=== PATIENT | female | born 1985 | race Caucasian/White ===

== ENCOUNTER 2018-06-10 07:52 | Day surgery (SDC) | payer OTHER ==
[~2018-06-10] VITALS: Ht 165.1 cm; Wt 64.0 kg
[2018-06-10] VITALS (14 sets, daily range): BP systolic 102–128; BP diastolic 58–74; PULSE 65–92; RESP 12–24; Ht 165.1 cm; Wt 64.0 kg
[~2018-06-10 07:52] MED LIST: CEFAZOLIN 2 GM/50 ML (PMX) 50 ML IVPB ONE; DESFLURANE 15 MIN ONE; SOD CHLORIDE 0.9% 1,000 ML IV SCH
[2018-06-10] MEDS ORDERED: LEVO1TAB6 PO (09:22)
[2018-06-10] MEDS ORDERED: SERT25TA PO (09:24)
[2018-06-10] MEDS ORDERED: CYCL1DRO BOTH EYES (09:24)
[2018-06-10] MEDS ORDERED: CEFAZOLIN 1 GM INJ ONE (09:33)
[2018-06-10] MEDS ORDERED: GLYCOPYRROLATE 0.4 MG INJ ONE (09:33)
[2018-06-10] MEDS ORDERED: NEOSTIGMINE 3 MG/3 ML SYRINGE ONE (09:33)
[2018-06-10] MEDS ORDERED: ROCURONIUM 50 MG INJ ONE (09:33)
[2018-06-10] MEDS ORDERED: PROPOFOL 20 ML ONE (09:33)
[2018-06-10] MEDS ORDERED: DEXAMETHASONE 4 MG/ML 5 ML INJ ONE (09:34)
[2018-06-10] MEDS ORDERED: MIDAZOLAM 1 MG/ML 2 ML INJ ONE (09:34)
[2018-06-10] MEDS ORDERED: ONDANSETRON 4 MG INJ ONE (09:34)
[2018-06-10] MEDS ORDERED: FENTAnyl 50 MCG/ML VIAL ONE (09:34)
[2018-06-10] MEDS ORDERED: BUPIVACAINE 0.25% (MPF) 30 ML INJ ONE (09:39)
[2018-06-10] MEDS ORDERED: POLYMYXIN/BACITRACIN 1L IRRIG ONE (09:39)
[2018-06-10] MEDS ORDERED: ROPIVACAINE 0.5 % 30 ML VIAL ONE (09:51)
--- NOTE | 2018-06-10 10:05 | PREAC ---
Date/Time of Note Date/Time of Note DATE: 06/10/18 TIME: 10:04 Anesthesia Eval and Record Evaluation Time Pre-Procedure Interview DATE: 06/10/18 TIME: 10:04 Age 32 Sex female NPO: 8 hrs Preoperative diagnosis VENTRAL HERNIA, NO OBSTRUCTION Planned procedure LAP VENTRAL HERNIA REPAIR WITH MESH Past Medical History Past Medical History: Includes Psych: Depression, Anxiety Surgery & Anesthesia Issues No known issue Meds Anticoagulation: No Beta Guilherme within 24 hr: No Reason Beta Guilherme not given: Pt. not on B-Guilherme Reported Medications Cyclosporine (RESTASIS) 1 Each Droperette, 1 DROP BOTH EYES Q12, #1 BOX 06/10/18 Sertraline Hcl* (Zoloft*) 25 Mg Tablet, 25 MG PO DAILY, #30 TAB 06/10/18 Levonorgestrel-Ethin Estradiol (Aviane-28 Tablet) 1 Each Tablet, 1 EACH PO DAILY, TAB 06/10/18 Current Medications Sodium Chloride 1,000 ml @ 75 mls/hr [id number] IV Last administered on 06/10/18at 07:00; Admin Dose 75 MLS/HR; Start 06/10/18 at 07:00; Stop 06/10/18 at 20:19 Meds reviewed: Yes Allergies Coded Allergies: sulfamethoxazole (Verified Allergy, Unknown, 06/10/18) trimethoprim (Verified Allergy, Unknown, 06/10/18) Allergies Reviewed: Yes Labs/Studies Labs Reviewed: Reviewed by anesthesiologist test: Negative Pre-procedure Exam Last vitals Vital Signs Date Temp Pulse Resp B/P (MAP) Pulse Ox O2 O2 Flow FiO2 Time Delivery Rate 06/10/18 98.4 66 16 106/60 99 Room Air 09:31 (75) Airway: Adequate mouth opening, Adequate thyromental dist Mallampati: Mallampati II Teeth: Normal Lung: Normal Heart: Normal ASA Physical Status ASA physical status: 1 Emergency: None Planned Anesthetic General/MAC: ETT Nerve block: TAP (bilateral) Planned Pain Management Parenteral pain med Pre-operative Attestations Prior to commencing anesthesia and surgery, the patient was re-evaluated, there was verification of: *The patient's identity *The results of appropriate recent lab work and preoperative vital signs *The above evaluation not changing prior to induction *Anesthetic plan, risk benefits, alternative and complications discussed with patient/family; questions answered; patient/family understands, accepts and wishes to proceed. David Chisholm M.D. Jun 10, 2018 10:05
[2018-06-10] MEDS ORDERED: IPRATROPIUM (NEB) 0.5 MG/2.5 ML AMP HHN PRN (10:30)
[2018-06-10] MEDS ORDERED: DIPHENHYDRAMINE 50 MG INJ IV PRN (10:30)
[2018-06-10] MEDS ORDERED: OXYCODONE/ACETAMINOPHEN (5/325) TAB PO PRN ×2 (10:30)
[2018-06-10] MEDS ORDERED: FENTAnyl 50 MCG/ML VIAL IV PRN ×3 (10:30)
[2018-06-10] MEDS ORDERED: hydrALAzine 20 MG INJ IV PRN (10:30)
[2018-06-10] MEDS ORDERED: ALBUTEROL 0.083% (NEB) 2.5 MG/3 ML AMP HHN PRN (10:30)
[2018-06-10] MEDS ORDERED: ONDANSETRON 4 MG INJ IV PRN (10:30)
[2018-06-10] MEDS ORDERED: EPHEDrine SULFATE 50 MG/5 ML SYG IV PRN (10:30)
[2018-06-10] MEDS ORDERED: LABETALOL HCL 20MG INJ IV PRN (10:30)
[2018-06-10] MEDS ORDERED: MIDAZOLAM 1 MG/ML 2 ML INJ IV PRN (10:30)
[2018-06-10] MEDS ORDERED: HYDROmorphONE 1 MG/5 ML IV SYRINGE IV PRN ×3 (10:30)
[2018-06-10] MEDS ORDERED: TRIMETHOBENZAMIDE 100 MG/ML VIAL IM PRN (10:30)
[2018-06-10] MEDS ORDERED: MEPERIDINE 25 MG INJ IV PRN (10:30)
[2018-06-10] MEDS ORDERED: POLYMYXIN/BACITRACIN 1L IRRIG IRR ONE (11:05)
--- NOTE | 2018-06-10 11:12 | OPR ---
Date/Time of Note Date/Time of Note DATE: 06/10/18 TIME: 11:09 Operative Report Procedure Date: Jun 10, 2018 Preoperative Diagnosis incarcerated ventral hernia Postoperative Diagnosis same Operation/Procedure Performed 1. laparoscopic incarcerated ventral hernia repair 2. implantation of ventralight ST mesh 10 x 15 cm Surgeon see signature line Physical Director none Anesthesia Type: general Estimated Blood Loss: 0 - 10 ml's Transfusion none Specimen none Grafts/Implants none Complications none Pt Condition Post Procedure: stable Indications This is a 32-year-old female with an incarcerated ventral hernia. She requires surgical repair. Risks alternatives benefits of procedure were discussed the patient. Patient expresses understanding and consents to the operation. Procedure Description Patient is taken to the OR and prepped and draped in usual sterile fashion. Surgical time was performed. IV antibiotics were given. Left upper quadrant 5 mm transverse incision is made with a 15 blade. Using a 5 mm optical trocar optical entry is performed. Pneumoperitoneum was established. Left flank 12 mm optical trochars placed under direct physician. Left lower quadrant 5 mm optical trochars placed under direct visualization. Upon initial inspection there is some use of the anterior abdominal wall with incarcerated hernia. Microscopic lysis of adhesions performed to allow mobilization and reduction of the incarcerated hernia contents. The fascial edges are freshened identified. The fascial defect is small and is closed primarily with interrupted #1 Vicryl using Endo Close and laparoscopic techniques. Underlay mesh is secured in place with ventral ST mesh 10 x 15 cm. This is acute in place with secure strap. Under the coverage of approximately 45 cm in all directions were ensured. Good hemostasis times. All ports removed under direct position. Skin incisions are closed using skin joe. A tap block was provided by anesthesiology. Dry dressings were applied. Erika TRIPLETT Jun 10, 2018 11:12
--- NOTE | 2018-06-10 11:23 | PAC ---
Date/Time of Note Date/Time of Note DATE: 06/10/18 TIME: 11:23 Post-Anesthesia Notes Post-Anesthesia Note Last documented vital signs Vital Signs Date Temp Pulse Resp B/P (MAP) Pulse Ox O2 O2 Flow FiO2 Time Delivery Rate 06/10/18 98.0 11:18 06/10/18 66 16 106/60 99 Room Air 09:31 (75) Activity: WNL Respiratory function: WNL Cardiovascular function: WNL Mental status: Baseline Pain reasonably controlled: Yes Hydration appropriate: Yes Nausea/Vomiting absent: Yes David Chisholm M.D. Jun 10, 2018 11:23
[2018-06-10] MEDS ORDERED: HYDROCODONE/APAP (5/325) TAB PO ONE (11:30)
== END 2018-06-10 13:10 | disposition home or self-care (01) ==
LOC: SDS 07:52
PROVIDERS: ATTEND Surgery
DX: K43.6 Other and unspecified ventral hernia with obstruction, without gangrene (principal)
CPT/HCPCS: 49653; 84703; C1781; J0690; J1100; J1170; J2175; J2250; J2405; J2710; J2795; J3010; Z7512; Z7610